=== PATIENT | male | born 1960 | race Caucasian/White ===

== ENCOUNTER 2017-02-15 08:18 | Emergency (ER) | payer MEDICAID, OTHER ==
[2017-02-15 08:42] VITALS: TEMP 97.7
--- NOTE | 2017-02-15 08:56 | EDPHY ---
H & P Stated Complaint: Infection in R hand;thinks it's staph, not sure if he's had MRSA Source: Patient Exam Limitations: No limitations - Personal History Current Tetanus Diphtheria and Acellular Pertussis (TDAP): Yes - Medical/Surgical History Hx Asthma: No Hx Chronic Respiratory Disease: No Hx Diabetes: No Hx Cardiac Disease: No Hx Renal Disease: No Hx Cirrhosis: No Hx Alcoholism: Yes Hx HIV/AIDS: No Hx Splenectomy or Spleen Trauma: No Other PMH: hep c - Social History Smoking Status: Current every day smoker Time Seen by Provider: 02/15/17 08:55 HPI/ROS: HPI: This is a 56 year old male presents with Chief Complaint: Infection in R hand;thinks it's staph, not sure if he's had MRSA Location: Top of right hand Quality: Redness Duration: 1 day Signs and Symptoms: No bleeding, no radiation, no numbness, no weakness, no tingling, no incontinence, no decreased range of motion, + swelling, + pain Timing: Worsening Severity: [id number] Context: Patient is right-hand dominant, no history of diabetes, reports that he may have accidentally cut the top of his hand approximately 3 days ago. He denies any injury, foreign body. He believes it was just accidentally cut while working. He has been washing it with soap and water daily and placed a Band-Aid on it. Yesterday evening he noted the top of his hand was increasing redness, warmth, tenderness to palpation. He reports his last tetanus shot within the last 5 years. No history of diabetes mellitus. Modifying Factors: See above Comment: ROS: see HPI Constitutional: No fever, no chills, no weight loss Eyes: No blurred vision Respiratory: No shortness of breath, no cough Cardiovascular: No chest pain Gastrointestinal: No nausea, no vomiting no diarrhea Genitourinary: No dysuria Extremities: No myalgias Neurologic: No weakness, no numbness Skin: No rashes Hematologic: No bruising, no bleeding MEDICAL/SURGICAL/SOCIAL HISTORY: Medical history: Generally healthy. Does not take any regular medications. Surgical history: Denies Social history: CONSTITUTIONAL: Adult white male, nontoxic in appearance, awake and alert, no obvious distress HEENT: Atraumatic and normocephalic. NECK: supple, no midline tenderness, flexion 45 degrees, extension 45 degrees, right and left lateral flexion 45 degrees. No meningismus. Cardiovascular: Normal S1/S2, regular rate, regular rhythm, without murmur rub or gallop. PULMONARY/CHEST: Symmetrical and nontender. no crepitus. Clear to auscultation bilaterally. Good air movement. No accessory muscle usage. ABDOMEN: Soft, nondistended, nontender, no ecchymosis. PELVIC: no pain with rocking; bilateral hips flexion 125 degrees, extension 30 degrees, with no pain internal rotation and no pain external rotation. BACK: No midline tenderness, no paraspinous spasm, deep tendon reflexes 2/2, no pain with straight leg raise EXTREMITIES: 2/2 radial pulses, right hand top portion shows moderate erythema and swelling extending to his MCP joints 2nd through 5th fingers. Mild decrease of flexion, extension due to swelling. There is a 2 mm opened area on the top of his hand with no drainage. no deformities, no clubbing, no cyanosis or edema. NEUROLOGICAL: no focal neuro deficits. GCS 15. Light touch sensation intact. SKIN: Warm and dry, no erythema. no rash. Good capillary refill. (Zachariah,Terra ) Constitutional: Initial Vital Signs Temperature (C) 36.8 C 02/15/17 08:20 Heart Rate 77 02/15/17 08:20 Respiratory Rate 18 02/15/17 08:20 Blood Pressure 142/77 H 02/15/17 08:20 O2 Sat (%) 95 02/15/17 08:20 O2 Delivery Mode Room Air Allergies/Adverse Reactions: No Known Allergies Allergy (Verified 02/15/17 08:19) Home Medications: Medication Instructions Recorded Cephalexin [Keflex (*)] 500 mg PO QID #28 cap 02/15/17 Sulfamethox/Tmp 800/160 mg 1 tab PO BID #14 tab 02/15/17 [Bactrim Ds] Medical Decision Making ED Course/Re-evaluation: Long discussion with patient regarding IV versus p.o. antibiotics. Patient was adamant that we start with p.o. antibiotics. Given Keflex and Bactrim for dual coverage. Area cleaned with mild soap and water and irrigated copiously, bacitracin and clean sterile dressing applied. Patient is aware he is to return in 2 days for repeat wound check and follow- up. No signs of neurovascular compromise/tenting of skin/compartment syndrome/ extremities and joints examined above and below area of concern and are neurovascularly intact. At this time no signs of tendon or bone infection. Patient was explained thoroughly the risk of tenosynovitis, abscess formation, bone infection. (Jess Soni) The patient was evaluated and managed by the physician payroll assistant. I have reviewed this chart and I agree with the findings and plan of care as documented , as indicated by my signature. I am the secondary supervising physician. ( Lynne Pelletier) Differential Diagnosis: Differential diagnosis includes but is not limited to cellulitis, tenosynovitis , abscess. (Jess Soni) - Data Points Medications Given: Discontinued Medications Cephalexin HCl (Keflex) 500 mg PO EDNOW ONE PRN Reason: Protocol Stop: 02/15/17 09:01 Last Admin: 02/15/17 09:09 Dose: 500 mg Trimethoprim/Sulfamethoxazole (Bactrim Ds) 1 ea PO EDNOW ONE PRN Reason: Protocol Stop: 02/15/17 09:01 Last Admin: 02/15/17 09:09 Dose: 1 ea Departure - Departure Disposition: Home, Routine, Self-Care Clinical Impression: Infection of right hand Condition: Good Instructions: Cellulitis (ED) Additional Instructions: Please wash the site twice a day with mild soap and water and pat dry. Apply topical antibiotic ointment twice a day and cover with clean sterile dressing. Take both Keflex and Bactrim as directed until complete. Limit use of right hand as much as possible. Please return to the emergency room in 2 days for repeat wound check. Referrals: [facility],. [Clinic] - As per Instructions Rey Miller MD [Medical Doctor] - As per Instructions Prescriptions: Cephalexin [Keflex (*)] 500 mg PO QID #28 cap Sulfamethox/Tmp 800/160 mg [Bactrim Ds] 1 tab PO BID #14 tab
[2017-02-15] MEDS ORDERED: SULFAMETHOX/TMP 800/160 MG 1 TAB PO ONE (09:00)
[2017-02-15] MEDS ORDERED: CEPHALEXIN 500 MG CAP PO ONE (09:00)
[2017-02-15 09:44] VITALS: BP 137/81; PULSE 72; RESP 17; O2SAT 95
== END 2017-02-15 09:51 | disposition home or self-care (01) ==
DX: L08.9 Local infection of the skin and subcutaneous tissue, unspecified (principal); F17.200 Nicotine dependence, unspecified, uncomplicated